=== PATIENT | female | born 1990 | race Caucasian/White ===

== ENCOUNTER 2018-11-05 01:37 | Emergency (ER) | payer MEDICAID, OTHER ==
[~2018-11-05] VITALS: Ht 162.6 cm; Wt 54.5 kg
[~2018-11-05 01:37] MED LIST: NO HOME MEDS
[2018-11-05 02:21] VITALS: BP 106/69
== END 2018-11-05 02:22 | disposition home or self-care (01) ==
LOC: ER 01:38
DX: Z04.1 Encounter for examination and observation following transport accident (principal); G89.29 Other chronic pain; M54.9 Dorsalgia, unspecified; Z88.8 Allergy status to other drugs, medicaments and biological substances
CPT/HCPCS: 99283

== ENCOUNTER 2018-12-25 09:04 | Emergency (ER) | payer OTHER ==
[~2018-12-25] VITALS: Ht 162.6 cm; Wt 50.5 kg
[2018-12-25 09:11] VITALS: BP 102/65
[2018-12-25] MEDS ORDERED: TRIA15CR61 TP (09:45)
[2018-12-25] MEDS ORDERED: METH4TAB81 PO (09:45)
[2018-12-25] MEDS ORDERED: triamcinolone acetonide 40mg/ml inj IM ONE (09:50)
== END 2018-12-25 10:10 | disposition home or self-care (01) ==
LOC: ER 09:05
DX: L23.7 Allergic contact dermatitis due to plants, except food (principal); G89.29 Other chronic pain; Z60.2 Problems related to living alone; Z88.8 Allergy status to other drugs, medicaments and biological substances
CPT/HCPCS: 96372; 99283; J3301

== ENCOUNTER 2019-07-02 17:35 | Emergency (ER) | payer MEDICAID, OTHER ==
[~2019-07-02] VITALS: Ht 162.6 cm; Wt 48.0 kg
[~2019-07-02 17:35] MED LIST changes: +METH4TAB81 PO
[2019-07-02 17:40] VITALS: BP 102/77
--- NOTE | 2019-07-02 18:40 | NUR ---
Patient sitting comfortably on gurney, she is A&O x4, PRAJAPATI and is appropriate.
[2019-07-02] MEDS ORDERED: CEPH-572 PO (18:42)
[2019-07-02] MEDS ORDERED: SULF1TAB49 PO (18:42)
== END 2019-07-02 18:53 | disposition home or self-care (01) ==
LOC: ER 17:36
DX: L03.114 Cellulitis of left upper limb (principal); G89.29 Other chronic pain; M54.9 Dorsalgia, unspecified; F41.9 Anxiety disorder, unspecified; F32.9 Major depressive disorder, single episode, unspecified; F15.90 Other stimulant use, unspecified, uncomplicated; Z88.6 Allergy status to analgesic agent; Z88.8 Allergy status to other drugs, medicaments and biological substances
CPT/HCPCS: 99283